=== PATIENT | male | born 1975 | race Caucasian/White ===

== ENCOUNTER 2017-07-04 10:46 | Emergency (ER) | payer BC, SELFPAY ==
[2017-07-04 10:48] VITALS: BP 129/82; PULSE 103; RESP 17; TEMP 37.7; O2SAT 98; BMI 30.3
--- NOTE | 2017-07-04 11:47 | EKG12_ITS ---
Test Reason : CP Blood Pressure : / mmHG Vent. Rate : 092 BPM Atrial Rate : 092 BPM P-R Int : 126 ms QRS Dur : 082 ms QT Int : 342 ms P-R-T Axes : 040 051 026 degrees QTc Int : 422 ms Normal sinus rhythm Normal ECG Confirmed by DM ULLOA, NANCY ([id number]), primer expeditor and drier GEOVANY PARK ([id number]) on 07/05/2017 1:19:14 PM Referred By: RAINE Confirmed By:NANCY CHAIDEZ MD
--- NOTE | 2017-07-04 11:49 | RAD_ITS ---
STUDY: X-RAY CHEST REASON FOR EXAM: Male, 42 years old. Chest pain and dizziness TECHNIQUE: Single AP portable view of the chest. COMPARISON: None. FINDINGS: Electric generator over the left chest wall. The lungs are clear and expanded. There is no demonstrated pleural abnormality. Normal size heart. Normal mediastinum and xiomara. Normal visualized pulmonary arteries. Normal visualized aortic arch and descending thoracic aorta. Normal visualized thoracic spine. Normal visualized ribs, clavicles, and shoulders. There is no demonstrated abnormality of the visualized soft tissue structures of the upper abdomen. RAD/Chest 1 View (Portable) IMPRESSION: No acute pulmonary process Electronically Signed: Crescencio Marie MD at 12:09 EDT , Service support ,
[2017-07-04] MEDS: 0.9% Normal Saline 1,000 ML 1000 ML IV (11:56)
[2017-07-04] MEDS: Aspirin 81 MG TAB.CHEW 324 MG PO (11:56)
[2017-07-04 12:00] VITALS: BP 107/82; PULSE 99; RESP 22; O2SAT 97
[2017-07-04 12:02] LABS: Absolute Lymphocyte Count 0.88 X10^3/ul (0.83-4.51); Absolute Neutrophil Count 5.6 X10^3/uL (2.0-7.7); Basophil# 0.04 X10^3/uL; Basophil% 0.6 % (0-1); Eosinophil# 0.05 X10^3/uL; Eosinophils% 0.7 % (0-5); Hematocrit 45.9 % (40-54); Lymphocyte # 0.88 X10^3/ul (4.0); Lymphocyte % 12.5 % (19-41); Mean Corp Hgb Conc 34.9 g/gl (32-36); Mean Corpuscular Hgb 31.1 pg (27.0-32.0); Mean Corpuscular Volume 89.3 fL (80-94); Mean Platelet Vol. 10.3 fl (6.2-12.0); Monocyte% 7.1 % (0-10); Neutrophil # 5.56 X10^3/uL (2.7-7.7); Neutrophil % 78.8 % (47-70); POSITIVE COUNT NO; POSITIVE DIFFERENTIAL NO; POSITIVE MORPHOLOGY NO; Platelet Count 217 K/mm3 (150-450); RBC Distribution Width CV 12.5 % (11.6-14.6); RBC Distribution Width SD 40.6 fl (35.1-43.9); Red Blood Count 5.14 M/mm3 (4.6-6.2); White Blood Count 7.1 K/mm3 (4.4-11.0)
[2017-07-04 12:13] LABS: Anion Gap 8 (5-15); BUN 13 mg/dL (7-18); BUN/Creat Ratio 12.4 RATIO (10-20); Calcium,Total 8.5 mg/dL (8.5-10.1); Chloride 112 mmol/L (98-107); Creatinine, Serum 1.05 mg/dL (0.70-1.30); D-Dimer Quantitative (DVT/PE) < 0.27 FEU/ug/m (0.27-0.49); EST Glomerular Filtration Rate 83 mL/min (>60); Est Glom Filt Rate - Afr Amer 100 mL/min (>60); Estimated Creatinine Clearance 104.63 ml/min; Glucose 87 mg/dL (74-106); Sodium Level 141 mmol/L (136-145)
[2017-07-04 13:12] VITALS: BP 115/68; PULSE 82; RESP 21; O2SAT 97
--- NOTE | 2017-07-04 13:35 | ED.VISSUMM ---
- ER Visit Summary Date of Service: 07/04/17 Chief Complaint: Chest pain History of Present Illness: The patient is a 42 M with chest pain. The pain started this morning fairly suddenly at 8 AM. It is substernal and radiates to the back. Nothing seems to bring it on or make it worse. Nothing has made it better. He was concerned that he felt a little dizzy. He has a cough and his left arm felt numb. He has a history of chronic knee pain and wears braces. He also reports a history of epilepsy and a history of a brain surgery and a vagal nerve stimulator. Physical Examination: Vital signs unremarkable. Afebrile. Acute distress. Alert and oriented. Heart regular. Lungs clear. Abdomen soft. Skin, calves, pulses unremarkable. Test Results: KG showed sinus rhythm at a rate of 92. No sign of acute ischemia or infarction pattern. CBC normal. Metabolic panel normal. Troponin normal. D-dimer negative. Chest x-ray showed no acute process. Emergency Department Course and Treatment: Patient is very low risk for ACS. This is an atypical presentation. His workup was unremarkable. I will have him follow-up as an outpatient for further care. D-dimer negative. Low pretest probability. I suspect he is not having PE or dissection. No further imaging or workup was indicated. Patient will take naproxen. Monitor for new or worsening symptoms. Follow-up with his primary care doctor for outpatient evaluation. Return for any new or worsening symptoms. Treatment Plan: Above Disposition: Discharged Impression: Chest pain unclear etiology This note was generated with [employer] dictation software. It may contain incorrect words, spelling, and punctuation that were not noted in review of the chart prior to signing ED Disposition - Plan for ED Patient: Chief Complaint: Chest Pain Referrals: Care Physician,No Primary [Primary Care Provider] -
--- NOTE | 2017-07-04 13:38 | ED.DEP ---
ED Disposition - Plan for ED Patient: Chief Complaint: Chest Pain Instructions: ED Chest Pain Atypical Unkn Cause Prescriptions: Naproxen [Naprosyn] 500 mg PO BID PRN #20 tab Referrals: Karrie Tabor MD [STAFF PHYSICIAN] -
[2017-07-04 13:54] VITALS: PULSE 81; RESP 16; O2SAT 97
== END 2017-07-04 13:55 | disposition home or self-care (01) ==
PROVIDERS: Emergency Provider Emergency Medicine
DX: R07.89 Other chest pain (principal); G40.909 Epilepsy, unspecified, not intractable, without status epilepticus; M25.562 Pain in left knee; M25.561 Pain in right knee; G89.29 Other chronic pain; Z97.8 Presence of other specified devices
CPT/HCPCS: 71045; 80048; 84484; 85025; 85379; 93005; 96360; 99284; J7030; A4216

== ENCOUNTER 2017-07-11 12:28 | Emergency (ER) | payer BC, SELFPAY ==
[2017-07-11 12:29] VITALS: BP 121/74; PULSE 106; RESP 24; TEMP 38.1; O2SAT 95; BMI 30.3
[2017-07-11 12:32] VITALS: BP 118/76; PULSE 95; RESP 26; O2SAT 97
--- NOTE | 2017-07-11 13:00 | RAD_ITS ---
STUDY: X-RAY CHEST REASON FOR EXAM: Male, 42 years old. Cough TECHNIQUE: Single AP portable view of the chest. COMPARISON: None. FINDINGS: The lungs are clear and expanded. There is no demonstrated pleural abnormality. Normal size heart. Normal mediastinum and xiomara. Normal visualized pulmonary arteries. Normal visualized aortic arch and descending thoracic aorta. Normal visualized thoracic spine. Normal visualized ribs, clavicles, and shoulders. There is no demonstrated abnormality of the visualized soft tissue structures of the upper abdomen. RAD/Chest 1 View (Portable) IMPRESSION: Normal x-ray examination of the chest. Electronically Signed: Rosana Ceballos MD at 13:32 EDT Tel , Service support ,
[2017-07-11 13:02] LABS: Absolute Neutrophil Count 7.5 X10^3/uL (2.0-7.7); Basophil# 0.01 X10^3/uL; Basophil% 0.1 % (0-1); Hematocrit 44.1 % (40-54); Hemoglobin 15.2 g/dl (13.0-16.5); Lymphocyte % 9.9 % (19-41); Mean Corp Hgb Conc 34.5 g/gl (32-36); Mean Platelet Vol. 9.8 fl (6.2-12.0); Monocyte% 6.6 % (0-10); Neutrophil # 7.52 X10^3/uL (2.7-7.7); Neutrophil % 83.2 % (47-70); Platelet Count 159 K/mm3 (150-450); RBC Distribution Width CV 12.2 % (11.6-14.6); RBC Distribution Width SD 40.2 fl (35.1-43.9); White Blood Count 9.1 K/mm3 (4.4-11.0)
[2017-07-11 13:03] LABS: Differential Indicated SCAN CRITERIA MET; POSITIVE COUNT NO; POSITIVE DIFFERENTIAL NO; POSITIVE MORPHOLOGY YES
[2017-07-11 13:12] LABS: AST(SGOT) 17 U/L (15-37); Alanine Aminotransfer ALT/SGPT 22 U/L (16-61); Albumin, Serum 3.5 g/dL (3.2-5.0); Alkaline Phosphatase 68 U/L (45-117); Anion Gap 9 (5-15); BUN 10 mg/dL (7-18); BUN/Creat Ratio 8.9 RATIO (10-20); Bilirubin, Direct 0.17 mg/dL (0.00-0.30); Calcium,Total 8.2 mg/dL (8.5-10.1); Chloride 110 mmol/L (98-107); Creatinine, Serum 1.12 mg/dL (0.70-1.30); EST Glomerular Filtration Rate 77 mL/min (>60); Est Glom Filt Rate - Afr Amer 93 mL/min (>60); Estimated Creatinine Clearance 98.09 ml/min; Glucose 98 mg/dL (74-106); Potassium 3.4 mmol/L (3.5-5.1); Protein, Total 7.5 g/dL (6.4-8.2); Sodium Level 140 mmol/L (136-145)
[2017-07-11] MEDS: Ondansetron 4 MG/2 ML Vial IV (13:17)
[2017-07-11] MEDS: 0.9% Normal Saline 1,000 ML 1000 ML IV (13:17)
[2017-07-11] MEDS: Acetaminophen 500 MG Tablet 1000 MG PO (13:17)
[2017-07-11 13:23] LABS: Color, Urine Yellow (Yellow); Glucose, Dipstick Normal (Normal); Ketone-Dipstick 5 mg/dl (Negative); Leukocyte Esterase-Dipstick Negative /ul (Negative); Nitrite-Dipstick Negative (Negative); Occult Blood-Urine 25 /ul (Negative); Protein-Dipstick 100 mg/dl (Negative); Urine Bilirubin Dipstick Negative (Negative); Urine Clarity Sl. Cloudy (Clear); Urine Urobilinogen 1 mg/dl (Normal)
[2017-07-11 13:35] LABS: Red Cell Morphology NORM C+C NORMAL (NORM C&C)
[2017-07-11 14:35] LABS: CPK Total, Creatine Kinase 143 U/L (39-308)
[2017-07-11 14:40] VITALS: BP 120/72; PULSE 91; RESP 19; O2SAT 96
[2017-07-11] MEDS: 0.9% Normal Saline 1,000 ML 150 ML IV (15:15)
--- NOTE | 2017-07-11 15:33 | ED.DCSUM_ITS ---
- ER Visit Summary Date of Service: 07/11/17 Chief Complaint: Slurred speech, vomiting, diarrhea, short of breath History of Present Illness: The patient is a 42 M who was seen here on July 04 for atypical chest pain. The patient states the next day he developed nausea, vomiting, diarrhea, and cough. He reports feeling weak and dehydrated. He reports having a low-grade fever yesterday. Physical Examination: Blood pressure is 118/76, temperature 100.6, heart rate 95 , respiratory rate 26, pulse ox 97% on room air. Head neck examination reveals dry mucous membranes. Heart is regular rate and rhythm. Lung sounds are mildly diminished at the bases. No wheezes or rhonchi. Abdomen is soft and nontender. Hypoactive bowel sounds are present. Patient is alert and oriented. He has normal strength and sensation throughout. I do not appreciate any slurred speech at this time and feel his speech changes are likely secondary to his dry mouth. Test Results: Chest x-ray is unremarkable. CBC reveals normal white count with 83% neutrophils. Chemistry studies reveal mild hypokalemia with potassium of 3.4. LFTs normal. Urinalysis shows 25 blood and 5 ketones. Influenza swab is negative. Emergency Department Course and Treatment: Patient is given IV fluids, Zofran, and Toradol. On repeat evaluation he is able to tolerate p.o. At this time is instructed to use Tylenol and ibuprofen at home and push fluids. I believe he likely has viral syndrome. He was not able to give a stool sample here but will be sent home with an order for stool studies. Treatment Plan: [] Disposition: Discharge Impression: Viral syndrome This note was generated with [employer] dictation software. It may contain incorrect words, spelling, and punctuation that were not noted in review of the chart prior to signing ED Disposition - Plan for ED Patient: Disposition: Home or Assisted Living Chief Complaint: General Illness Instructions: ED Viral Syndrome Prescriptions: Ondansetron [Zofran Odt] 4 mg PO Q8H PRN PRN #10 tablet PRN Reason: Nausea Referrals: Kamaljit Meeks MD [STAFF PHYSICIAN] - 1-2 Weeks Care Physician,No Primary [Primary Care Provider] -
--- NOTE | 2017-07-11 15:33 | ED.DEP ---
ED Disposition - Plan for ED Patient: Disposition: Home or Assisted Living Chief Complaint: General Illness Instructions: ED Viral Syndrome Prescriptions: Ondansetron [Zofran Odt] 4 mg PO Q8H PRN PRN #10 tablet PRN Reason: Nausea Referrals: Care Physician,No Primary [Primary Care Provider] - Kamaljit Meeks MD [STAFF PHYSICIAN] - 1-2 Weeks
[2017-07-11 15:46] VITALS: BP 135/82; PULSE 93; RESP 14; O2SAT 96
[2017-07-13 15:30] LABS: Lamotrigine (Lamictal) Level 2.6 ug/mL (2.0-20.0)
== END 2017-07-11 15:47 | disposition home or self-care (01) ==
PROVIDERS: Emergency Provider Emergency Medicine
DX: B34.9 Viral infection, unspecified (principal); G40.909 Epilepsy, unspecified, not intractable, without status epilepticus
CPT/HCPCS: 71045; 80048; 80076; 81002; 82542; 82550; 85025; 87804; 96361; 96374; 99285; J7030; A4216; J2405

== ENCOUNTER 2018-02-11 10:23 | Emergency (ER) | payer BC, SELFPAY ==
[2018-02-11 10:23] VITALS: BP 143/85; PULSE 90; RESP 18; TEMP 36.4; O2SAT 99
--- NOTE | 2018-02-11 10:48 | VDLE_ITS ---
Reason For Study: Swelling RIGHT LEFT CFV is compressible, spontaneous, phasic, GSV is normal. competent and demonstrates normal CFV is compressible, spontaneous, phasic, augmentation. competent, and demonstrates normal Procedure augmentation. Exam performed portable in ED. FV is compressible, spontaneous, phasic, A preliminary report was called and/or faxed competent and demonstrates normal to Dr. Earl. augmentation. POP V is compressible, spontaneous, phasic, competent and demonstrates normal augmentation. T/P Trunk is compressible. PTV is compressible. LT PerV is compressible. <> Interpretation Summary Deep veins of the left lower extremity are patent and compressible segmentally. There is no evidence of left lower extremity deep vein thrombosis. Valvular competence appears intact within the proximal deep venous system on the left . The left greater saphenous vein appears patent and compressible segmentally. Ordering Physician: Alysha Earl Performed By: Melissa Trejo RDCS, RVT
[2018-02-11 11:35] LABS: Anion Gap 9 (5-15); BUN 12 mg/dL (7-18); BUN/Creat Ratio 10.4 RATIO (10-20); Calcium,Total 8.2 mg/dL (8.5-10.1); Chloride 112 mmol/L (98-107); Creatinine, Serum 1.15 mg/dL (0.70-1.30); EST Glomerular Filtration Rate 74 mL/min (>60); Est Glom Filt Rate - Afr Amer 90 mL/min (>60); Estimated Creatinine Clearance 94.57 ml/min; Glucose 113 mg/dL (74-106); Potassium 3.3 mmol/L (3.5-5.1); Sodium Level 141 mmol/L (136-145)
--- NOTE | 2018-02-11 14:02 | ED.VISSUMM ---
- ER Visit Summary Date of Service: 02/11/18 Chief Complaint: [Leg pain and swelling] History of Present Illness: The patient is a 43 M [presents the emergency department complaint of swelling in his legs and discomfort. Patient's had discomfort for about a month in his left calf and posterior thigh. Patient's had tingling in his left foot off and on for the last 2 weeks. He denies any chest pain or shortness of breath. He denies any trauma to his extremities. Patient states that he has a history of bad knees and wears sleeves over both knees. Patient has history of epilepsy.] Physical Examination: [HEENT-PERRLA, EOMI. Cranial nerves II through XII grossly intact. TMs clear. Mucous membranes moist. No adenopathy. Cardiovascular-regular rate and rhythm without murmur or ectopy Lungs-clear to auscultation, chest wall stable without crepitus or subcu emphysema Abdomen-normoactive bowel sounds, soft, nontender, no rebound or rigidity, no peritoneal signs. Extremities-intact ?4, normal range of motion, normal pulses, atraumatic]. Left leg-no significant edema noted. Patient does have tenderness over the left calf and a positive Homans sign. No ropes or cords are palpated. Patient has normal range of motion in both knees. Patient has normal pulses to both lower extremities. Test Results: [BMP obtained was unremarkable other than slightly depressed potassium at 3.3. BUN was 12 and creatinine 1.15. Venous duplex of the left lower extremity was negative for DVT.] Emergency Department Course and Treatment: [Patient was given 40 mg once potassium chloride p.o.] Treatment Plan: [Patient will be referred to orthopedics for follow-up and given a prescription for 10 [place] for severe pain.] Disposition: [Discharged home in stable condition] Impression: [Leg edema Leg pain-etiology uncertain] This note was generated with [employer] dictation software. It may contain incorrect words, spelling, and punctuation that were not noted in review of the chart prior to signing ED Disposition - Plan for ED Patient: Chief Complaint: Lower Extremity Injury Referrals: Care Physician,No Primary [Primary Care Provider] -
--- NOTE | 2018-02-11 14:05 | DCINST.ED_ITS ---
ED Disposition - Plan for ED Patient: Chief Complaint: Lower Extremity Injury Instructions: ED Leg Swelling Bilateral Prescriptions: Hydrocodone Bitart/Apap 5-325 [[place] 5MG-325MG] 1 tab PO Q4H PRN PRN 2 Days #10 tab PRN Reason: Pain Referrals: Care Physician,No Primary [Primary Care Provider] - Frederick Thomas DO [STAFF PHYSICIAN] - 5-7 Days
[2018-02-11 14:34] VITALS: BP 115/88; PULSE 79; RESP 14; O2SAT 98
== END 2018-02-11 14:49 | disposition home or self-care (01) ==
LOC: ED 11:17
PROVIDERS: Emergency Provider Emergency Medicine
DX: R60.0 Localized edema (principal); M79.662 Pain in left lower leg; M79.652 Pain in left thigh; G40.909 Epilepsy, unspecified, not intractable, without status epilepticus
CPT/HCPCS: 80048; 93971; 99283

== ENCOUNTER 2018-11-15 19:16 | Emergency (ER) | payer BC, SELFPAY ==
[2018-11-15 19:18] VITALS: BP 125/72; PULSE 80; RESP 16; TEMP 36.2; O2SAT 98; BMI 30.2
[2018-11-15 19:41] LABS: Bacteria 0 SEEN /hpf (None Seen); Mucous, Urine 0 SEEN /hpf (<or=2+); Red Blood Cells-Urine 0 SEEN /hpf (0-5); White Blood Cells 0 SEEN /hpf (0-5)
[2018-11-15 19:44] LABS: Color, Urine Yellow (Yellow); Glucose, Dipstick Normal (Normal); Ketone-Dipstick Negative (Negative); Leukocyte Esterase-Dipstick Negative /ul (Negative); Nitrite-Dipstick Negative (Negative); Occult Blood-Urine Negative /ul (Negative); Protein-Dipstick Negative (Negative); Urine Bilirubin Dipstick Negative (Negative); Urine Clarity Cloudy (Clear); Urine Urobilinogen Normal (Normal)
[2018-11-15 20:02] LABS: Amorphous Sediment 4+ PHOS; Squamous Epithelial Cells - UA 0-5 SEEN /hpf (0-5)
--- NOTE | 2018-11-15 20:22 | US_ITS ---
STUDY: SCROTUM ULTRASOUND REASON FOR EXAM: Male, 43 years old. Left-sided swelling and pain for one month TECHNIQUE: Ultrasound evaluation of the scrotum was performed with color Doppler and static archuleta-scale imaging. COMPARISON: None. FINDINGS: RIGHT TESTICLE INTRATESTICULAR: There is a normal size of the right testicle. The right testicle measures 4.5 x 2.3 x 1.9 cm. There is a homogenous echotexture. There is normal arterial and normal venous vascularity. There is no demonstrated right testicular mass or cyst. EXTRATESTICULAR: The epididymis is normal in size. The epididymis head measures 1.1 x 0.9 x 0.9 cm. There is normal vascularity of the epididymis. Right epididymis cyst measuring 4 x 4 by 3 mm. There is a small hydrocele. There is no demonstrated varicocele. There is no demonstrated extratesticular mass or cyst. LEFT TESTICLE INTRATESTICULAR: There is a normal size of the left testicle. The left testicle measures 3.7 x 2.6 x 1.9 cm. There is a homogenous echotexture. There is normal arterial and normal venous vascularity. There is no demonstrated left testicular mass or cyst. EXTRATESTICULAR: The epididymis is normal in size. The epididymis head measures 1.0 x 0.9 x 0.7 cm. There is normal vascularity of the epididymis. There is no demonstrated epididymal cystic structure. There is no demonstrated hydrocele. There are prominent extratesticular veins consistent with a varicocele. There is no demonstrated extratesticular mass or cyst. US/Testicular with Arterial Flow IMPRESSION: Varicocele on the left. Small hydrocele on the right. Small epididymis cyst on the right. No evidence of acute intratesticular pathology. Electronically Signed: Nithin Anderson MD at 21:15 EDT Tel , Service support ,
--- NOTE | 2018-11-15 20:23 | ED.DCSUM_ITS ---
History of Present Illness Chief Complaint: Male Pain/Injury Informant: Patient Onset: Month(s) - 12 Context: Gradual Onset Timing: Continuous Quality: sore, ache Location: left testicle/scrotum Current Severity: Moderate Maximum Severity: Moderate Worsened by: touching affected area Relieved by: nothing. tried no treatments yet. Associated Symptoms: occ nausea, occ lower abd pain Narrative: Patient has had this for over a month. He was seen at the urgent care clinic next door earlier today and sent to the emergency department. States it occasionally bol[place] to pee. Denies any urethral discharge, history of GC or chlamydia, or suspicion of it. He is and monogamous. No fevers or vomiting. Having normal bowel movements. No history of hernias. - Past Medical History (1) Epilepsy Status: Chronic Past Medical History - Allergies and Home Meds Allergies/Adverse Reactions: Allergies No Known Allergies Allergy (Verified 11/15/18 19:20) Primary Care Physician: Care Physician,No Primary [Primary Care Provider] - Lives: Spouse/ Significant Other Smoking Status: Never smoker Drugs: None Review of Systems General: Denies: Chills, Fever Gastrointestinal: Reports: Abdominal pain, Nausea. Denies: Vomiting, Diarrhea, Constipation, Melena, Hematochezia Genitourinary: Reports: Dysuria, - - left testicle enlargement and pain. Denies: Hematuria, Frequency Musculoskeletal: Denies: Neck pain, Back pain Skin: Denies: Rash, Wounds Neurological: Denies: Headache, Weakness, Numbness Physical Exam Vital Signs/Narrative: Vital Signs Temp Pulse Resp BP Pulse Ox 11/15/18 19:18 97.1 F L 80 16 125/72 H 98 Inital Vital Signs reviewed: Yes General: Well nourished, Well developed, No Acute Distress Head: Normocephalic, Atraumatic : - - Swelling and tenderness left hemiscrotum, the testicle is tender but the epididymis is more tender. The entire structure seems more elongated and large, I do not feel any definite hernia. Patient was evaluated while standing. Cremasterics intact. Right testicle nontender normal-appearing. No urethral discharge. No skin lesions. Back: Nontender, Normal Inspection. Negative for: CVA tenderness Extremities: Nontender, No edema Skin: Normal color, No rash, No Trauma Neurological: Alert, Oriented x3, Cranial nerves II-XII grossly intact, Normal Strength, Normal Sensation, Normal Gait Psychological: Normal affect, Normal Mood Diagnostic/Tx/Re-eval Impressions Testicular Ultrasound 11/15/18 20:22 IMPRESSION: Varicocele on the left. Small hydrocele on the right. Small epididymis cyst on the right. No evidence of acute intratesticular pathology. Electronically Signed: Nithin Anderson MD at 21:15 EDT Tel , Service support , 11/15/18 20:22 US Testicular [Testicular with Arterial Flow] [US] Stat Laboratory Results 11/15/18 19:30 Urine Color Yellow Urine Clarity Cloudy Urine pH 7.0 Ur Specific [place] 1.010 Urine Protein Negative Urine Glucose (UA) Normal Urine Ketones Negative Urine Occult Blood Negative Urine Nitrite Negative Urine Bilirubin Negative Urine Urobilinogen Normal Ur Leukocyte Esterase Negative Urine RBC 0 SEEN Urine WBC 0 SEEN Ur Squamous Epith Cells 0-5 SEEN Amorphous Sediment 4+ PHOS Urine Bacteria 0 SEEN Urine Mucus 0 SEEN - Medical Decision Making Urinalysis is unremarkable showing no signs of infection, he has no symptoms or risk for GC/chlamydia at this time, and his ultrasound shows a varicocele but no signs of orchitis or epididymitis. Will give him prescription for analgesics and refer him to urology. He is comfortable with that plan. ED Disposition - Plan for ED Patient: Disposition: Home or Assisted Living Diagnosis: Left varicocele Instructions: Varicocele Prescriptions: Naproxen [Naprosyn] 500 mg PO BID PRN #20 tab Transmission Status: Pending to [facility]/pharmacy #[id number] Referrals: Zen Graham MD [STAFF PHYSICIAN] - As soon as possible (call for appt)
[2018-11-15 22:03] VITALS: BP 112/74; PULSE 69; RESP 17
[2018-11-15] MEDS: Naproxen 500 MG Tablet PO (22:03)
== END 2018-11-15 22:07 | disposition home or self-care (01) ==
PROVIDERS: Emergency Provider Emergency Medicine
DX: I86.1 Scrotal varices (principal); N43.3 Hydrocele, unspecified; N50.3 Cyst of epididymis; G40.909 Epilepsy, unspecified, not intractable, without status epilepticus; Z79.899 Other long term (current) drug therapy
CPT/HCPCS: 76870; 81001; 93976; 99282; A4216

== ENCOUNTER 2019-12-16 13:11 | Emergency (ER) | payer BC, SELFPAY ==
[2019-12-16 13:12] VITALS: BP 141/93; PULSE 63; RESP 16; TEMP 36.3; O2SAT 100; BMI 30.7
--- NOTE | 2019-12-16 13:21 | CT_ITS ---
STUDY: CT ABDOMEN AND PELVIS WITHOUT CONTRAST REASON FOR EXAM: Male, 44 years old. RIGHT FLANK PAIN--STARTED THIS AM -- HX-KIDNEY STONES RADIATION DOSAGE (If Supplied By Facility): CTDIvol = ( 14.52 ) mGy, DLP = ( 790.78 ) mGycm TECHNIQUE: Transaxial images were obtained from the dome of the diaphragm to the symphysis pubis without oral contrast, and without intravenous contrast. Sagittal and coronal images were reconstructed. Individualized dose optimization techniques were used for this CT. COMPARISON: 01/02/2017 FINDINGS: The visualized lung bases are unremarkable. The visualized portions of the heart are within normal limits. There is a simple cyst of the anterior left hepatic lobe measuring up to 1.6 cm. Benign, incidental finding; no specific imaging workup recommended according to current ACR guidelines. Normal gallbladder and extrahepatic biliary system. Normal spleen. Normal pancreas. Intermediate density nodule in the right adrenal gland measuring 1.5 cm is stable, compatible with a lipid poor adenoma (Benign, incidental finding; no specific imaging workup recommended according to current ACR guidelines.) Mild right hydronephrosis with a 4-5 mm calculus in the distal right ureter (image 177 series 2). Multiple punctate calcifications of the bilateral kidneys are demonstrated. Normal left kidney. Normal visualized stomach. Normal small intestine. Normal colon. The appendix is visualized and appears normal. Normal abdominal aorta. Normal inferior vena cava. Normal retroperitoneum. Normal urinary bladder. There are prostatic calcifications. Normal abdominal wall. There are diffuse degenerative changes of the visualized lumbar spine. There are limbus vertebral bodies of L3 and L4, normal variant. CT/Abdomen/Pelvis without Cont IMPRESSION: 4-5 mm distal right ureter calculus with mild hydronephrosis. Bilateral nephrolithiasis. Electronically Signed: Hayder Garcia MD ([place]) at 14:39 EDT , Service support ,
--- NOTE | 2019-12-16 13:21 | ED.DCSUM_ITS ---
History of Present Illness <Link Barajas - Last Filed: 12/16/19 15:39> Informant: Patient - Abdominal Pain/Flank Pain Onset: Today Context: Sudden Onset Timing: Continuous Quality: Sharp, Stabbing Location: Right Flank Current Severity: Severe Maximum Severity: Severe Worsened by: Nothing Relieved by: Nothing - Nausea/Vomiting/Emesis GI Symptom: Nausea. Negative for: Vomiting - Diarrhea/Melena/Hematochezia GI Symptom: Negative for: Diarrhea, Melena, Hematochezia Associated Symptoms: Negative for: Dysuria, Frequency, Hematuria, Urgency Narrative: 44-year-old male history of epilepsy and kidney stones presents to emergency department with right flank pain that is been getting worse for the last 5 hours. It is sharp stabbing and intermittent. Nothing makes it better or worse. It feels like his previous kidney stones. He has not had difficulty urinating. He has had nausea without vomiting. No diarrhea melena or hematochezia. No numbness or tingling of the upper or lower extremities no chest pain or shortness of breath no trauma denies any hematuria dysuria urinary frequency or urgency Prior similar symptoms: Yes Recent Illness/Hospitalization: No <Carlos Rust - Last Filed: 12/16/19 18:09> Chief Complaint: Flank Pain Past Medical History <Link Barajas - Last Filed: 12/16/19 15:39> Prior records reviewed: Yes Past Medical History: - - epilepsy and kidney stones Surgical History: no surgical history Lives: With Family Smoking Status: Never smoker Alcohol: Occasional Drugs: None <Carlos Rust - Last Filed: 12/16/19 18:09> - Allergies and Home Meds Allergies/Adverse Reactions: Allergies No Known Allergies Allergy (Verified 12/16/19 13:13) Primary Care Physician: Care Physician,No Primary [Primary Care Provider] - Review of Systems All systems negative except as indicated General: Denies: Chills, Fever, Sweats Eyes: Denies: Visual changes - bilaterally, Diplopia ENT: Denies: Rhinorrhea, Sore throat Cardiovascular: Denies: Chest pain, Palpitations Respiratory: Denies: Dyspnea, Cough, Dyspnea on exertion Gastrointestinal: Reports: Abdominal pain, Nausea. Denies: Vomiting, Diarrhea, Constipation, Melena, Hematochezia Genitourinary: Denies: Dysuria, Hematuria, Frequency Musculoskeletal: Denies: Back pain, Swelling, Extremity Pain Skin: Denies: Rash, Wounds Neurological: Denies: Headache, Weakness, Numbness <Carlos Rust - Last Filed: 12/16/19 18:09> Physical Exam Vital Signs/Narrative: Vital Signs Temp Pulse Resp BP Pulse Ox 12/16/19 13:12 97.3 F L 63 16 141/93 H 100 <Link Barajas - Last Filed: 12/16/19 15:39> Vital Signs/Narrative: Vital Signs Temp Pulse Resp BP Pulse Ox 12/16/19 13:12 97.3 F L 63 16 141/93 H 100 Inital Vital Signs reviewed: Yes General: Well nourished, Well developed, No Acute Distress Head: Normocephalic, Atraumatic Eyes: Perrl, EOMI ENT: Moist mucous membranes, No rhinorrhea Neck: Supple, Nontender Cardiovascular: Regular rate, Regular rhythm, No murmurs Respiratory: No distress, CTA bilaterally, Chest nontender Abdomen: Soft, Nontender, Nondistended, Normal bowel sounds Back: Nontender, Normal Inspection. Negative for: CVA tenderness, Spinal tenderness Extremities: Nontender, No edema. Negative for: Tenderness, Edema, Calf Tenderness Skin: Normal color, No rash Neurological: Alert, Oriented x3, Cranial nerves II-XII grossly intact, Normal Strength, Normal Sensation Psychological: Normal affect, Normal Mood <Carlos Rust - Last Filed: 12/16/19 18:09> Diagnostic/Tx/Re-eval - Medical Decision Making Patient was seen with me. I did a [id number] examination with the patient. Patient presents with right flank pain that began today. Patient states the pain feels similar to prior kidney stones. Patient states the pain radiates to his right lower abdomen. Patient denies any fevers or chills. Patient denies any dysuria or hematuria. Patient denies any nausea or vomiting. Vital signs are stable. Patient is afebrile. Patient is in no acute distress. Oral mucosa is pink and moist. Neck is supple. Trachea is midline. There is no JVD. Heart was regular rate and rhythm. Lungs are clear and equal bilaterally. Abdomen is soft. There is some mild right lower quadrant and right CVA tenderness. There is no rebound or guarding noted. Cranial nerves II through XII are intact. There are no focal motor or sensory deficits. CT scan of the abdomen and pelvis was obtained. There is a 4 to 5 mm distal right ureteral calculus with mild hydronephrosis. This was interpreted by the radiologist and reviewed by myself. CBC showed a mild leukocytosis of 11.7. Basic metabolic profile was essentially within normal limits. Urinalysis is ordered and is pending. Patient was advised of his findings. Patient was given a prescription for analgesics. Patient was instructed to follow-up with his primary care physician in 5 to 7 days. Patient understood and was agreeable with the plan. All questions were answered. <Link Barajas - Last Filed: 12/16/19 15:39> CT: Abdomen and Pelvis Impressions Abdomen/Pelvis CT 12/16/19 13:21 IMPRESSION: 4-5 mm distal right ureter calculus with mild hydronephrosis. Bilateral nephrolithiasis. Electronically Signed: Hayder Garcia MD ([place]) at 14:39 EDT , Service support , 12/16/19 13:21 Abdomen/Pelvis without Cont [CT] Stat Laboratory Results 12/16/19 12/16/19 12/16/19 13:45 13:45 17:30 WBC 11.7 H RBC 5.08 Hgb 16.0 Hct 47.7 MCV 93.9 MCH 31.5 MCHC 33.5 RDW Std Deviation 42.3 RDW Coeff of Latrell 12.2 Plt Count 239 MPV 9.8 Immature Gran % (Auto) 0.500 Neut % (Auto) 86.2 H Lymph % (Auto) 8.6 L [place] % (Auto) 4.0 Eos % (Auto) 0.3 Baso % (Auto) 0.4 Absolute Neuts (auto) 10.0 H Absolute Lymphs (auto) 1.00 Nucleated RBC % 0 Sodium 138 Potassium 3.7 Chloride 110 H Carbon Dioxide 21.0 Anion Gap 7 BUN 12 Creatinine 1.23 Estim Creat Clear Calc 87.51 Est GFR (MDRD) Af Amer 82 Est GFR (MDRD) Non-Af 68 BUN/Creatinine Ratio 9.8 L Glucose 95 Calcium 8.0 L Urine Color Straw Urine Clarity Clear Urine pH 6.0 Ur Specific Morton 1.010 Urine Protein Negative Urine Glucose (UA) Normal Urine Ketones Negative Urine Occult Blood 50 H Urine Nitrite Negative Urine Bilirubin Negative Urine Urobilinogen Normal Ur Leukocyte Esterase Negative Urine RBC 0-5 SEEN Urine WBC 0-5 SEEN Ur Squamous Epith Cells 0 SEEN Urine Bacteria 0 SEEN Urine Mucus 0 SEEN - Medical Decision Making Urinalysis unremarkable patient will be discharged with Flomax Percocet Zofran and follow-up with urology <Carlos Rust - Last Filed: 12/16/19 18:09> ED Disposition <Link Barajas - Last Filed: 12/16/19 15:39> <Carlos Rust - Last Filed: 12/16/19 18:09> - Plan for ED Patient: Disposition: Home or Assisted Living Diagnosis: Kidney stone on right side, Epilepsy Instructions: ED Renal Stone w Colic Prescriptions: Tamsulosin HCl [Flomax] 0.4 mg PO DAILY #7 cap Prescription Printed Oxycodone HCl/Acetaminophen [Percocet 5/325] 1 tab PO Q6H PRN PRN 3 Days #12 tab PRN Reason: Pain Prescription Printed Ondansetron [Zofran Odt] 4 mg PO Q8H PRN PRN #10 tab PRN Reason: Nausea Prescription Printed Referrals: Care Physician,No Primary [Primary Care Provider] - Zen Graham MD [STAFF PHYSICIAN] -
[2019-12-16] MEDS: Ondansetron 4 MG/2 ML Vial IV (13:40)
[2019-12-16] MEDS: 0.9% Normal Saline 1,000 ML 250 ML IV (13:40)
[2019-12-16] MEDS: Ketorolac 30 MG/ML Syringe IV (13:41)
[2019-12-16] MEDS: Morphine 4 MG/ML Syringe IV (13:41)
[2019-12-16 13:58] LABS: Basophil# 0.05 X10^3/uL; Basophil% 0.4 % (0-1); Eosinophil# 0.04 X10^3/uL; Eosinophils% 0.3 % (0-5); Hematocrit 47.7 % (40-54); Lymphocyte % 8.6 % (19-41); Mean Corp Hgb Conc 33.5 g/dL (32-36); Mean Corpuscular Hgb 31.5 pg (27.0-32.0); Mean Corpuscular Volume 93.9 fL (80-94); Mean Platelet Vol. 9.8 fl (6.2-12.0); Monocyte# 0.47 X10^3/uL; NRBC Flagged by Analyzer 0 % (0-5); Neutrophil # 10.03 X10^3/uL (2.7-7.7); Neutrophil % 86.2 % (47-70); Platelet Count 239 K/mm3 (150-450); RBC Distribution Width CV 12.2 % (11.6-14.6); RBC Distribution Width SD 42.3 fl (35.1-43.9); Red Blood Count 5.08 M/mm3 (4.6-6.2); White Blood Count 11.7 K/mm3 (4.4-11.0)
[2019-12-16 14:09] LABS: Anion Gap 7 (5-15); BUN 12 mg/dL (7-18); BUN/Creat Ratio 9.8 RATIO (10-20); Chloride 110 mmol/L (98-107); Creatinine, Serum 1.23 mg/dL (0.70-1.30); EST Glomerular Filtration Rate 68 mL/min (>60); Est Glom Filt Rate - Afr Amer 82 mL/min (>60); Estimated Creatinine Clearance 87.51 ml/min; Glucose 95 mg/dL (74-106); Potassium 3.7 mmol/L (3.5-5.1); Sodium Level 138 mmol/L (136-145)
[2019-12-16 17:40] LABS: Bacteria 0 SEEN /hpf (None Seen); Mucous, Urine 0 SEEN /hpf (<or=2+); Squamous Epithelial Cells - UA 0 SEEN /hpf (0-5)
[2019-12-16 17:52] LABS: Color, Urine Straw (Yellow); Glucose, Dipstick Normal (Normal); Ketone-Dipstick Negative (Negative); Leukocyte Esterase-Dipstick Negative /ul (Negative); Nitrite-Dipstick Negative (Negative); Occult Blood-Urine 50 /ul (Negative); Protein-Dipstick Negative (Negative); Urine Bilirubin Dipstick Negative (Negative); Urine Clarity Clear (Clear); Urine Urobilinogen Normal (Normal)
[2019-12-16 17:55] LABS: Red Blood Cells-Urine 0-5 SEEN /hpf (0-5); White Blood Cells 0-5 SEEN /hpf (0-5)
== END 2019-12-16 18:24 | disposition home or self-care (01) ==
PROVIDERS: Emergency Provider Physician Assistant Medical
DX: N13.2 Hydronephrosis with renal and ureteral calculous obstruction (principal); G40.909 Epilepsy, unspecified, not intractable, without status epilepticus; Z87.442 Personal history of urinary calculi
CPT/HCPCS: 74176; 80048; 81001; 85025; 96361; 96374; 96375; 99281; 99282; J7030; A4216; J2405

== ENCOUNTER → 2020-10-06 07:55 | Outpatient (CLI) | payer BC, SELFPAY ==
--- NOTE | 2020-10-06 07:58 | CT_ITS ---
STUDY: CT CERVICAL SPINE WITHOUT CONTRAST REASON FOR EXAM: Male, 45 years old. Right arm and right shoulder pain. History of seizures. RADIATION DOSAGE (If Supplied By Facility): CTDIvol = ( 28.17 ) mGy, DLP = ( 624.36 ) mGycm TECHNIQUE: High resolution transaxial imaging was performed without contrast material. Sagittal and coronal images were reconstructed. Individualized dose optimization techniques were used for this CT. COMPARISON: None FINDINGS: Normal craniovertebral junction. Normal anterior atlantoaxial articulation. Normal odontoid process. There is straightening of the normal cervical lordosis. Normal vertebral bodies and posterior osseous elements. C2-3: Normal endplates. Normal disc height and morphology. Normal central canal and intervertebral neuroforamina. C3-4: Normal endplates. Normal disc height and morphology. Normal central canal and intervertebral neuroforamina. C4-5: Uncovertebral arthrosis worse on the right side causing moderate degree of right neural foraminal stenosis. Central posterior spondylosis abutting the thecal sac slightly worse on the right side of the midline. C5-6: Mild degree of disc space narrowing. Mild degree of bilateral neural foraminal stenosis. C6-7: Mild degree of bilateral neural foraminal stenosis. C7-T1: Normal endplates. Normal disc height and morphology. Normal central canal and intervertebral neuroforamina. Surgical clips are seen in the left anterior cervical region. CT/Spine Cervical without Contras IMPRESSION: Multilevel degenerative changes, as described above. Electronically Signed: Melvin Llamas MD at 14:31 EDT , Service support ,
== END ==
LOC: CT 07:56
PROVIDERS: PCP Nurse Practitioner; Referring Provider Orthopaedic Surgery; Visit Provider Orthopaedic Surgery
DX: M54.12 Radiculopathy, cervical region (principal)
CPT/HCPCS: 72125

== ENCOUNTER 2021-06-01 15:00 | Outpatient (RCR) | payer BC, SELFPAY ==
--- NOTE | 2021-05-29 16:07 | HP.PTEVAL ---
Patient's Visit Information SARAH NAPOLES II is a 46 year old M referred to Physical Therapy by Dr. Rowena Hernandez MD with a diagnosis of Neck pain with R UE radiculopathy. Date of Evaluation: 05/29/21 Physical Therapist: Agusto Lind, PT, ATC - Visit Plan Frequency: 1x/Week Duration: 1 Week Plan: get a second opinion from Chevy Tapia PT next visit - Subjective Pt reports he has had neck pain for several months. Pt notes his pain has progressively worsened. Pt notes he now has severe headaches and his R UE is numb. Pt reports he has to sit and stand with his head in forward protrusion in order to avoid being in severe pain. Pt reports he had a CT scan 6 months ago which revealed severe deg changes consisting of spinal stenosis and OA. Pt reports his BECKFORD's feel like they start in his neck and radiate up to the front of his head. Pt reports any lifting or when he attempts to start walking he gets increased pain. Pt notes if he sits down or lye's down his pain will go away. Pt is R hand dominant. 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 Pt reports he has made adaptations to be able to perform most ADL's secondary to pain. 7/10 at rest, 10/10 at worst (while he is at work) - Pain neck pain Pain Intensity (Out of 10): 7 Pain Intensity Range: 10 - Objective Neuro: B UE sensation is WNL to light touch. B bicepital reflex= 1/3. MMT: R shoulder is 3-/5 and painful. L shoulder is 4+/5. C/S ROM: Pt is moderately to severely limited with retraction, R SB and rot, and extension. All other motions are WNL. repeated movements: Not able to assess today secondary to pain - Goals Goal 1:: Decrease c/s pain x 50% to aid with sleep Goal Time Frame: 4-6 Weeks Goal 2:: Increase c/s ROM x 1 grade to aid with IADL's Goal Time Frame: 4-6 Weeks Goal 3:: Decreasse the frequency and intensity of R UE radiculopathy x 25-50% to aid with IADL's Goal Time Frame: 4-6 Weeks Goal 4:: I with HEP Goal Time Frame: 4-6 Weeks - Rehabilitation Potential Physical Therapy Diagnosis: Pt has neck pain, R UE radiculopathy, and severe loss of ROM in cervical spine secondary to c/s disc pathology Rehabilitation Potential: Fair - Anticipated Interventions Patient/Client Instruction: Educate patient on: Condition, Plan of Care For the Purpose of:: To improve self management Therapeutic Exercise to Include: Postural training, Flexibilty training, Alla Exercises For the Purpose of:: To decrease pain, To increase ROM, To improve muscle performance and motor function Functional electric stimulation: Yes Ultrasound (thermal/non thermal): Yes For the Purpose of:: To decrease pain Thank you for the opportunity to evaluate your patient. For Medicare and Medicare HMO plans, please review the plan of care and approve it. It will need to be FAXED BACK to us at [phone] for Medicare purposes. For Medicare only, by signing this I certify the plan of care. Please let me know if there are questions or concerns regarding this plan of care. Physician Signature: Date:
--- NOTE | 2021-10-07 08:08 | HP.PT.NRP ---
SARAH NAPOLES II was seen in my office for initial evaluation on 05/29/21. The following Plan of Care was established for this patient: Initial Frequency: 1x/Week Initial Duration: 1 Week Patient/Client Instruction: Educate patient on: Condition, Plan of Care For the Purpose of:: To improve self management Therapeutic Exercise to Include: Postural training, Flexibilty training, Alla Exercises For the Purpose of:: To decrease pain, To increase ROM, To improve muscle performance and motor function Functional electric stimulation: Yes Ultrasound (thermal/non thermal): Yes For the Purpose of:: To decrease pain This patient was last seen in our office . Pertinent comments regarding their Physical therapy will appear below: Pt was treated for 3 PT visits for neck pain through the date of 06/01/21. Pt has not returned through todays date and is discontinued at this time At this point I will be discontinuing this patient from physical therapy. I would be happy to see this patient again in the future if found appropriate by the physician. Thank you! Agusto Lind, PT, ATC Balance/Gait/Functional tests - Balance/Special Test Scores Oswestry Neck Score: 17
== END 2021-06-01 19:00 | disposition home or self-care (01) ==
LOC: PT 15:00
PROVIDERS: PCP Nurse Practitioner; Referring Provider Internal Medicine; Visit Provider Internal Medicine
DX: M54.12 Radiculopathy, cervical region (principal)
CPT/HCPCS: 97014; 97035; 97161; 97530; G0283

== ENCOUNTER 2024-02-06 08:30 | Outpatient (RCR) | payer OTHER, SELFPAY ==
--- NOTE | 2024-02-03 09:24 | HP.PTEVAL_ITS ---
Patient's Visit Information Visit Information Visit Information: SARAH NAPOLES II is a 49 year old M referred to Physical Therapy by ANAMARIA Stark with a diagnosis of Acute R LBP. Date of Evaluation: 02/03/24 Physical Therapist: Link Thomas, DPT, OCS, CSCS Visit Plan Frequency: 2-3x /Week Duration: 4-6 Weeks Plan: 2-3x/week for 4 weeks for IE: prone to prone prop 5-7 min 4+x/day, posture with towel roll, body mechanics with bending, minimize sitting.Use TENS, ice posture at home prone ext harman progression, PA mobs lumbar, ROM lumbar to HEP, core strength to HEP, may use TENS and STM and ice as needed but has TENS at home. R LE strength Eventual home [id number] and body mechanics, stretch HS and quads. Subjective Subjective: LBP. Got trigger point injections in LB from chiro and stuck needle in sciatic N. That was 3 weeks ago. bends twists and turns alot at work [facility] got worse. Went to family doctor and got steroid pack which made it worse. sent to PT and maybe specialist if PT not helpful. X rays show smashed L5 according to patient and has spurring. used to be hard to stand somedays but not this bad. R sided LBP and down R leg to toes on posterior since injection constant. Pain is mostly constant. 8/10. suffering after work. Uses heating pad. Works 3rd shift. Lives with : all ADLs I but slow, has to sit and hard time bending. Getting up out of chair is rough. Rolling in bed is rough. uses TENS unit. Sleeps OK with pillows under knees, hard to move in am. Pain r LBP: Pain Intensity (Out of 10): 8 Pain Intensity Range: 8 and 9 Objective Objective: Hard time getting up from sitting, does not get all the way up tall. Leans L in sittng keeping weight off R side. Hunched while ambulating and R antalgia. LB AROM ext max limited adn painful R LB, flexion max limited and R leg pain, SB L OK, SB R Painful. R LE weak and painful most testing specifically hip flexion, LAQ, DF 3+ and HS 4-, hip abd and ext 3. L side is also painful iun R LB and 4-/5. hard time moving comfortably today. reflexes 2/3 patella and achilles B. Sensation LE WNL to gross lgiht touch. prone lying better than supine. + R SLR, and + R slump test. prone prop. centralized 7/10 Flexibility appears poor in HS adn quads but hard to test due to acuity of pain. prone press up minimally PDM, W 8/10 back to the side adn still tingling Sitting straighter after session in frontal and sagittal plane. Still 7-8/10 pain in back and tingly leg. Balance/Special Test Scores Lower Extremity Functional Score: 20 Goals Goal 1:: Stand and sit in neutral position frontal and sagittal without pain. Goal Time Frame: 4-6 Weeks Goal 2:: Lumbar ROM without increased pain or hesitation Goal Time Frame: 4-6 Weeks Goal 3:: I appropriate HEP for core strength, body mechanics and lumbar ROM. Goal Time Frame: 4-6 Weeks Goal 4:: Ospina and activity 90% better and 1/10 at worst Goal Time Frame: 4-6 Weeks Goal 5:: LEFS score 40 Goal Time Frame: 4-6 Weeks Rehabilitation Potential Physical Therapy Diagnosis: Pain limiting movement and comfortable funciton Rehabilitation Potential: Fair Anticipated Interventions Patient/Client Instruction: Educate patient on: Condition and Plan of Care For the Purpose of:: To decrease pain, To increase ROM, To improve nutrient delivery to tissue and To improve muscle performance and motor function Therapeutic Exercise to Include: Strength training, Postural training, Flexibilty training, Passive ROM, Active ROM and Harman Exercises For the Purpose of:: To decrease pain, To increase ROM, To improve nutrient delivery to tissue, To improve muscle performance and motor function, To increa se tolerance to activity/condition/position and To improve gait and locomotor functions Manual Therapy Techniques to Include: Mobilization and Soft tissue mobilization For the Purpose of:: To decrease pain and To increase ROM TENS: Yes Cryotherapy (ice pack, ice massage): Yes For the Purpose of:: To decrease pain, To decrease swelling/inflammation, To increase ROM and To improve nutrient delivery to tissue Text: Thank you for the opportunity to evaluate your patient. For Medicare and Medicare HMO plans, please review the plan of care and approve it. It will need to be FAXED BACK to us at [phone] for Medicare purposes. For Medicare only, by signing this I certify the plan of care. Please let me know if there are questions or concerns regarding this plan of care. Physician Signature: Date:
--- NOTE | 2024-03-19 13:29 | HP.PT.NRP ---
Patient Information Patient Information: SARAH NAPOLES II was seen in my office for initial evaluation on 02/03/24. The following Plan of Care was established for this patient: POC Established Initial Frequency: 2-3x /Week Initial Duration: 4-6 Weeks Anticipated Interventions Patient/Client Instruction: Educate patient on: Condition and Plan of Care For the Purpose of:: To decrease pain, To increase ROM, To improve nutrient delivery to tissue and To improve muscle performance and motor function Therapeutic Exercise to Include: Strength training, Postural training, Flexibilty training, Passive ROM, Active ROM and Alla Exercises For the Purpose of:: To decrease pain, To increase ROM, To improve nutrient delivery to tissue, To improve muscle performance and motor function, To increase tolerance to activity/condition/position and To improve gait and locomotor functions Manual Therapy Techniques to Include: Mobilization and Soft tissue mobilization For the Purpose of:: To decrease pain and To increase ROM TENS: Yes Cryotherapy (ice pack, ice massage): Yes For the Purpose of:: To decrease pain, To decrease swelling/inflammation, To increase ROM and To improve nutrient delivery to tissue Last Seen Last Seen: This patient was last seen in our office 02/06/24. Pertinent comments regarding their Physical therapy will appear below: Pt seen 2 visits of POC and no showed or cancelled the rest. I will discontinue from my care as it has been almost 6 weeks. At this point I will be discontinuing this patient from physical therapy. I would be happy to see this patient again in the future if found appropriate by the physician. Thank you! Link Thomas, DPT, OCS, CSCS Balance/Gait/Functional tests Balance/Special Test Scores Lower Extremity Functional Score: 20
== END 2024-02-06 19:00 | disposition home or self-care (01) ==
LOC: PT 08:30
PROVIDERS: PCP Nurse Practitioner Family; Referring Provider Nurse Practitioner Family; Visit Provider Nurse Practitioner Family
DX: M54.41 Lumbago with sciatica, right side (principal); M25.551 Pain in right hip
CPT/HCPCS: 97110; 97162

== ENCOUNTER → 2024-06-13 | Outpatient (CLI) | payer BC, SELFPAY ==
--- NOTE | 2024-06-13 11:32 | US_ITS ---
PROCEDURE: EXT NON VASC LIMITED/SOFT TISS REASON FOR EXAM: Palpable lump in the right axilla. TECHNIQUE: Ultrasound imaging of right axilla. COMPARISON: None. FINDINGS: Targeted imaging of the right axilla was obtained. No sonographic abnormality is seen. US/Ext Non Vasc Limited/Soft Tiss IMPRESSION: No sonographic abnormality is seen. Reading Location: [id number]
== END | disposition home or self-care (01) ==
LOC: US 11:32
PROVIDERS: PCP Nurse Practitioner Family; Referring Provider Nurse Practitioner Family; Visit Provider Nurse Practitioner Family
DX: R22.31 Localized swelling, mass and lump, right upper limb (principal)
CPT/HCPCS: 76882

== ENCOUNTER → 2024-12-28 | Outpatient (CLI) | payer OTHER, SELFPAY ==
[2024-12-28 15:47] LABS: Hematocrit 43.9 % (40-54); Hemoglobin 15.3 g/dL (13.0-16.5); Mean Corp Hgb Conc 34.9 g/dL (32-36); Mean Corpuscular Volume 90.7 fL (80-94); Mean Platelet Vol. 9.8 fl (6.2-12.0); Platelet Count 203 K/mm3 (150-450); RBC Distribution Width CV 11.8 % (11.6-14.6); RBC Distribution Width SD 38.8 fl (35.1-43.9); Red Blood Count 4.84 M/mm3 (4.6-6.2); White Blood Count 5.8 K/mm3 (4.4-11.0)
[2024-12-28 16:47] LABS: AST(SGOT) 22 U/L (<=37); Alanine Aminotransfer ALT/SGPT 34 U/L (<=46); Albumin, Serum 4.4 g/dL (3.5-5.0); Alkaline Phosphatase 90 U/L (40-129); Anion Gap 12 (5-15); BUN 14 mg/dL (4-19); BUN/Creat Ratio 13.0 RATIO (10-20); Calcium,Total 8.9 mg/dL (7.6-11.0); Carbon Dioxide 20.2 mmol/L (21.0-32.0); Chloride 110 mmol/L (98-108); Globulin 2.2 g/dL (2.2-4.2); Glucose 96 mg/dL (70-99); Potassium 3.7 mmol/L (3.3-5.1)
== END | disposition home or self-care (01) ==
LOC: LAB 14:52
PROVIDERS: PCP Nurse Practitioner Family
DX: G40.219 Localization-related (focal) (partial) symptomatic epilepsy and epileptic syndromes with complex partial seizures, intractable, without status epilepticus (principal)
CPT/HCPCS: 36415; 80053; 80201; 82542; 85027